=== PATIENT | female | born 1975 | race Caucasian/White ===

== ENCOUNTER 2018-08-02 08:58 | Emergency (ER) | payer BC, SELFPAY ==
[2018-08-02 09:00] VITALS: BP 137/87; PULSE 96; RESP 12; TEMP 36.7; O2SAT 100; BMI 26.5
--- NOTE | 2018-08-02 09:23 | ED.DCSUM_ITS ---
- ER Visit Summary Date of Service: 08/02/18 Chief Complaint: Headache History of Present Illness: The patient is a 43 F with chronic migraines presents with similar episode that started 2 days ago. She usually gets Imitrex injections sent to her house and apparently this month the delivery is late, this is not as bad as some of the headache she has had in the past but she does not want for her to be maximum. She has no fever chills no vision changes, she has some photophobia. Headache is described as throbbing aching similar to prior migraines Physical Examination: Patient appears in some distress. Moist mucous membranes, no obvious facial deformity No C-spine tenderness supple neck. Negative JOLT Regular rate and rhythm without any obvious murmurs Clear lungs bilaterally speaking in full sentences without any obvious respiratory distress Abdomen soft and nontender no guarding or rebound Moves all extremities without any difficulty or pain. Skin does not show any obvious rashes or lesions, no trauma. Alert oriented ?3 with no gross focal deficit. Normal gait Emergency Department Course and Treatment: Patient has chronic recurrent cephalgia is without any neurological deficit, this was a gradual onset no further studies are needed. Should be treated symptomatically with Benadryl Toradol Reglan and fluids. Plan is to discharge in stable condition Impression: Cephalgia This note was generated with [employer] dictation software. It may contain incorrect words, spelling, and punctuation that were not noted in review of the chart prior to signing ED Disposition - Plan for ED Patient: Disposition: Home or Assisted Living Instructions: ED Cephalgia Unspecified Referrals: Max Thomas [Primary Care Provider] - 3-5 Days
[2018-08-02] MEDS: 0.9% Normal Saline 1,000 ML 999 ML IV (09:35)
[2018-08-02] MEDS: Ketorolac 30 MG/ML Syringe IV (09:35)
[2018-08-02] MEDS: Metoclopramide 10 MG/2 ML Vial IV (10:11)
[2018-08-02] MEDS: Benztropine 2 MG Tablet PO (10:11)
[2018-08-02 11:00] VITALS: BP 138/80; PULSE 88; RESP 18; O2SAT 99
== END 2018-08-02 11:09 | disposition home or self-care (01) ==
PROVIDERS: Emergency Provider Emergency Medicine; Family Provider Family Medicine; PCP Family Medicine
DX: G43.909 Migraine, unspecified, not intractable, without status migrainosus (principal); G40.909 Epilepsy, unspecified, not intractable, without status epilepticus
CPT/HCPCS: 96361; 96374; 96375; 99283; J7030; A4216

== ENCOUNTER → 2018-09-24 07:47 | Outpatient (CLI) | payer BC, SELFPAY ==
--- NOTE | 2018-09-24 07:50 | MRI_ITS ---
HISTORY: rt knee sprain 08/24/18. Pain anteriorly. No prev knee surgery EXAMINATION: MR Knee W/O Contrast TECHNIQUE: Multiplanar and multisequence MR images of the right knee. IV Contrast dosage and agent: None. COMPARISON: None FINDINGS: Cartilage: The inferior lateral aspect of the patella shows high-grade near complete cartilage loss accompanied by focal subchondral marrow edema of the patella as seen with grade IV chondromalacia. No fracture seen. No osteochondral fragment or loose body seen. The tibiofemoral articular cartilage appears preserved. No joint effusion or popliteal cyst formation. Medial and lateral menisci show normal shape and signal intensity. No meniscal tear. Intact cruciate and collateral ligaments. Normal quadriceps and patellar tendons. No bursitis. No musculotendinous injury seen. No fracture or avascular necrosis. MRI/Lower Ext Joint Only (Routine) IMPRESSION: 1. Localized grade IV chondromalacia patella, details above. Associated reactive marrow edema. 2. Otherwise negative exam. Intact menisci and ligaments. No fracture seen. at 0257 Reported and signed by: Aristeo Ramirez MD Electronically Signed: Aristeo Ramirez, at 2:56 EDT Tel , Service support ,
== END ==
PROVIDERS: Family Provider Family Medicine; PCP Family Medicine; Referring Provider Family Medicine; Visit Provider Family Medicine
DX: S83.91XA Sprain of unspecified site of right knee, initial encounter (principal)
CPT/HCPCS: 73721

== ENCOUNTER → 2019-03-30 12:44 | Outpatient (CLI) | payer OTHER, SELFPAY ==
--- NOTE | 2019-03-30 15:11 | NEURO ---
NCS and/or EMG Patient Report HPI: Patient is a 43-year-old female who presented with tingling in left arm from shoulder down into her hand and fingers. Symptoms have been present on and off for many years and have progressed to occurring more frequently. Patient denies being diabetic. Patient states, she jammed left arm and neck several years ago bracing herself during a fall. She had nerves in her neck burnt for headache. Patient also complains of neck pain and tightening of neck muscles and difficulty moving her left shoulder, specially with overhead activities. She feels some weakness in her left arm also and difficulty lifting things from her left arm. Physical Exam: Mild cervical spasm and tenderness on left side. Range of motion slightly limited on the left side of cervical spine, specially lateral bending and lateral rotation. Spurling test slightly positive on left side. Mild left shoulder tenderness, ROM limited in left shoulder, specially abduction and external rotation. Mild weakness of left hand muscles noted. Sensory deficit in left hand fingers noted. Findings: 1, Normal nerve conduction studies of left median and ulnar nerves. 2. Normal needle examination of left upper extremity and left cervical paraspinal muscles. Impression: 1. Normal EMG and nerve conduction studies of left arm. 2. No electrodiagnostic evidence of cervical radiculopathy, brachial plexopathy or peripheral neuropathy of left upper extremity. Recommendation: 1. Clinical correlation and appropriate work-up is recommended
== END ==
PROVIDERS: Family Provider Family Medicine; PCP Family Medicine; Referring Provider Orthopaedic Surgery; Visit Provider Orthopaedic Surgery
DX: M25.512 Pain in left shoulder (principal); R20.8 Other disturbances of skin sensation; M54.12 Radiculopathy, cervical region
CPT/HCPCS: 95886; 95908

== ENCOUNTER → 2020-10-16 13:48 | Outpatient (CLI) | payer OTHER, SELFPAY ==
--- NOTE | 2020-10-16 13:59 | CT_ITS ---
STUDY: CT BRAIN WITHOUT CONTRAST REASON FOR EXAM: Female, 45 years old. R/O BLEED RADIATION DOSAGE (If Supplied By Facility): CTDIvol = ( 44.99 ) mGy, DLP = ( 863.60 ) mGycm TECHNIQUE: Transaxial CT imaging of the brain was performed without administration of intravenous contrast material. Individualized dose optimization techniques were used for this CT. COMPARISON: Comparison is made with prior study dated 07/13/2013. FINDINGS: Normal soft tissue structures. There is hyperostosis frontalis internus. Normal size ventricles and extra-axial spaces for the patient''s age. Normal white matter tracts of the cerebral hemispheres. Normal basal ganglia and thalami. Normal brainstem. Normal cerebellum. There is no intracranial hemorrhage. There are no findings of an acute ischemic infarction. Normal visualized paranasal sinuses. CT/Brain/Head without Contrast IMPRESSION: No acute abnormality is seen. Electronically Signed: Ish Dillon MD at 14:29 EDT , Service support ,
== END ==
PROVIDERS: PCP Family Medicine; Referring Provider Emergency Medicine; Visit Provider Emergency Medicine
DX: S06.0X9A Concussion with loss of consciousness of unspecified duration, initial encounter (principal)
CPT/HCPCS: 70450

== ENCOUNTER 2021-01-29 10:03 | Emergency (ER) | payer BC, SELFPAY ==
[2021-01-29 10:06] VITALS: BP 143/91; PULSE 81; RESP 17; TEMP 36.6; O2SAT 100; BMI 26.5
--- NOTE | 2021-01-29 10:30 | EDS_ITS ---
HPI History of Present Illness Chief Complaint: Headache Informant: patient Onset/Context/Timing Onset: Days (4) Context: Gradual Timing: Continuous Quality -Headache: Positive for Similar Prior Headaches (Except worse in severity and lasting longer) Location: Left parietal Current Severity: Moderate Maximum Severity: Moderate Worsened by: Light sometimes Relieved by: ibuprofen partially Associated Symptoms/Injury Associated Symptoms: Positive for Tingling (left side), Blurred Vision and Photophobia; Negative for Nausea and Vomiting Injury - WILD: Negative for Direct Trauma and Fall Narrative Narrative: Patient follows with neurology for history of seizures and migraines, advised to come here today because of a persistent headache that will not go away after 4 days which is unusual for her migraines. She states the headache is otherwise very similar to her typical migraines, left-sided, blurry vision, some mild photophobia, and some tingling on the left side which has occurred before, she states sometimes it is on the right. She states the unusual aspect of this headache is it severity and its persistence. She denies any weakness in her left side. She states the headache started the same day that she started a new medication, duloxetine. The headache was not there before she started the medication. She has since discontinued it and the headache has persisted. Ibuprofen has helped some, she has had no seizure activity since then, or any other obvious trigger for this headache. When asked if she has a history of an aneurysm or intracranial hemorrhage of any sort, she states that she did have a small 1 that was not managed surgically, and they gave me a medication to stop the bleeding and it took everything away. [facility] Medical History Migraine Seizure Home Medications Aimovig Autoinjector 70 mg IV QMONTH 08/02/18 [History Last Taken Unknown] carbamazepine [Tegretol] 500 mg PO BID 08/02/18 [History Last Taken Unknown] eletriptan [Relpax] 40 mg PO .X1 PRN 08/02/18 [History Last Taken Unknown] eletriptan mg 01/29/21 [History Last Taken Unknown] prochlorperazine maleate [Compazine] 10 mg PO Q6H PRN #14 tab 01/29/21 [Rx Last Taken Unknown] sertraline 50 mg PO DAILY 01/29/21 [History Last Taken Unknown] Allergy/AdvReac Type Severity Reaction Status Date / Time Penicillins Allergy Hives Verified 01/29/21 10:04 Social History Smoking Status: Never smoker ROS ROS ED Constitutional Constitutional ED: Denies chills or fever(s) Eyes Eyes: Reports blurry vision; Denies diplopia ENT ENT ED: Denies ear pain or sore throat Cardiovascular Cardiovascular: Denies chest pain or palpitations Respiratory/Chest Respiratory/Chest: Denies cough or dyspnea Gastrointestinal Gastrointestinal: Reports nausea and vomiting; Denies abdominal pain or diarrhea Genitourinary Genitourinary ED: Denies dysuria or urinary frequency Musculoskeletal Musculoskeletal: Denies back pain or myalgias Integumentary Denies abscess or rash Neurologic Neurologic: Reports headache(s) and paresthesias; Denies weakness EXAM Physical Exam Const Vital Signs: 01/29/21 10:06 01/29/21 11:35 Temperature 97.9 F Temperature Source Temporal Pulse Rate 81 78 Respiratory Rate 17 16 Blood Pressure 143/91 H 119/76 Blood Pressure Mean 108 90 Pulse Ox 100 100 Oxygen Delivery Method Room Air Room Air HEENT Reports normocephalic and moist mucous membranes atraumatic Eyes PERRL, EOMs intact bilaterally and conjunctivae normal Eyes Narrative: mild photophobia Neck no lymphadenopathy, supple and no meningeal signs Resp normal respiratory effort and clear to auscultation bilaterally GI non-tender and non-distended Palpation: soft Extremity normal to inspection and full ROM Neuro oriented x3 and CN's II-XII intact bilaterally Neuro Narrative: Subjective decreased sensation left thigh and upper arm Sensorium / Orientation: awake and alert Speech: speech normal Gait (Neuro): normal gait Motor Exam: strength 5/5 throughout Psych mental status grossly normal Skin Lesions: no lesions Rashes: no rashes MDM MDM MDM Narrative Medical decision making narrative: Patient was treated with IV Compazine and she feels much better with only very minor residual left headache. Her numbness is gone. CT of the head shows some mucosal thickening in the ethmoid sinuses, when I discussed this with her she is feeling better in this area, she just had sinus surgery on like which she did not tell me prior to this. This is probably residual postoperative findings and nothing acute. Patient is advised to follow-up with her neurologist, I gave her a prescription for Compazine pills to use as needed. Radiography Diagnostic Testing: Radiology Impression Brain CT 01/29/21 10:30 IMPRESSION: Normal unenhanced CT scan of the brain. Sinusitis. Electronically Signed: Ish Dillon MD at 11:05 EDT , Service support , Discharge Plan Triage Chief Complaint: Headache ED Provider: Yonas Goyal Dx/Rx/DC Orders Clinical Impression: Migraine Instructions: ED, Migraine (Classical) Prescriptions: New prochlorperazine maleate [Compazine] 10 mg tablet 10 mg PO Q6H PRN (Reason: nausea/vomiting or headache) Qty: 14 RF: 0 No Action carbamazepine [Tegretol] 200 MG tablet 500 mg PO BID RF: 0 eletriptan [Relpax] 40 MG tablet 40 mg PO .X1 PRN RF: 0 Aimovig Autoinjector 70 MG/M auto-injector 70 mg IV QMONTH RF: 0 sertraline 50 mg tablet 50 mg PO DAILY RF: 0 eletriptan 40 mg tablet RF: 0 Primary Care Provider: Rickey Ldebetter Referrals: Neurologist, your [Other] - 3-5 Days if not improving Rickey Ledbetter MD [Primary Care Provider] - Disposition Disposition: Home, Self Care
--- NOTE | 2021-01-29 10:30 | CT_ITS ---
STUDY: CT BRAIN WITHOUT CONTRAST REASON FOR EXAM: Female, 45 years old. Left-sided headache. Blurred vision. History of seizures and migraine. RADIATION DOSAGE (If Supplied By Facility): CTDIvol = ( 44.99 ) mGy, DLP = ( 846.73 ) mGycm TECHNIQUE: Transaxial CT imaging of the brain was performed without administration of intravenous contrast material. Individualized dose optimization techniques were used for this CT. COMPARISON: Comparison is made with prior study dated 10/16/2020. FINDINGS: Normal soft tissue structures. There is hyperostosis frontalis internus. Normal size ventricles and extra-axial spaces for the patient''s age. Normal white matter tracts of the cerebral hemispheres. Normal basal ganglia and thalami. Normal brainstem. Normal cerebellum. There is no intracranial hemorrhage. There are no findings of an acute ischemic infarction. Mucosal thickening of the maxillary sinuses as well as the ethmoid sinus. CT/Brain/Head without Contrast IMPRESSION: Normal unenhanced CT scan of the brain. Sinusitis. Electronically Signed: Ish Dillon MD at 11:05 EDT , Service support ,
[2021-01-29] MEDS: proCHLORPERazine 10 MG/2 ML Vial IV (10:45)
[2021-01-29 11:35] VITALS: BP 119/76; PULSE 78; RESP 16; O2SAT 100
== END 2021-01-29 13:13 | disposition home or self-care (01) ==
PROVIDERS: Emergency Provider Emergency Medicine; PCP Family Medicine
DX: G43.909 Migraine, unspecified, not intractable, without status migrainosus (principal); Z79.899 Other long term (current) drug therapy; J32.9 Chronic sinusitis, unspecified
CPT/HCPCS: 70450; 96374; 99283; A4216